=== PATIENT | female | born 1950 | race Hispanic/Latino ===

== ENCOUNTER → 2018-01-14 | Outpatient (CLI) | payer BC ==
[~2018-01-14] MED LIST: REGADENOSON 0.4 MG/5 ML PF SYG IVP SCH
== END | disposition home or self-care (01) ==
LOC: SHCH 08:29
PROVIDERS: ATTEND Internal Medicine Cardiovascular Disease
DX: I10 Essential (primary) hypertension (principal); I73.9 Peripheral vascular disease, unspecified
CPT/HCPCS: 78452; 93017; 96374; A9500 ×2; J2785

== ENCOUNTER → 2018-05-06 | Outpatient (CLI) | payer BC | END | disposition home or self-care (01) | LOC: SHCH 10:10 | PROVIDERS: ATTEND Internal Medicine Cardiovascular Disease | DX: I20.8 Other forms of angina pectoris (principal); I10 Essential (primary) hypertension | CPT/HCPCS: 93306 ==

== ENCOUNTER → 2018-05-09 | Outpatient (CLI) | payer BC | END | disposition home or self-care (01) | LOC: SHCH 08:16 | PROVIDERS: ATTEND Internal Medicine Cardiovascular Disease | DX: I20.8 Other forms of angina pectoris (principal) | CPT/HCPCS: 78452; 93017; 96374; A9500 ×2; J2785 ==

== ENCOUNTER → 2018-07-10 | Outpatient (CLI) | payer BC | END | disposition home or self-care (01) | LOC: RAH 08:30 | PROVIDERS: ATTEND Family Medicine | DX: R05 Cough (principal) | CPT/HCPCS: 74230; 92611 ==

== ENCOUNTER → 2019-02-20 | Outpatient (CLI) | payer MEDICARE | END | disposition home or self-care (01) | LOC: SHCH 08:04 | PROVIDERS: ATTEND Internal Medicine Cardiovascular Disease | DX: I37.1 Nonrheumatic pulmonary valve insufficiency (principal); I25.10 Atherosclerotic heart disease of native coronary artery without angina pectoris; I11.9 Hypertensive heart disease without heart failure | CPT/HCPCS: 93306 ==

== ENCOUNTER → 2019-03-05 | Outpatient (CLI) | payer MEDICARE | END | disposition home or self-care (01) | LOC: SHCH 07:56 | PROVIDERS: ATTEND Internal Medicine Cardiovascular Disease | DX: I65.23 Occlusion and stenosis of bilateral carotid arteries (principal); I25.10 Atherosclerotic heart disease of native coronary artery without angina pectoris | CPT/HCPCS: 93880 ==